=== PATIENT | male | born 1985 | race African-American/Black ===

== ENCOUNTER 2017-10-14 13:35 | Emergency (ER) | payer MEDICAID ==
[~2017-10-14] VITALS: Ht 185.4 cm; Wt 70.0 kg
[2017-10-14] MEDS ORDERED: ONDANSETRON HCL 4MG/2ML VIAL IV STA ×2 (15:29→21:09)
[2017-10-14] MEDS ORDERED: SODIUM CHLORIDE 0.9% 1,000 ML IV ONE (15:29)
[2017-10-14] MEDS ORDERED: MORPHINE SULFATE 4 MG/ML CPJ (NOT FOR IM USE) IV STA ×2 (15:29→21:09)
[2017-10-14 15:53] LABS: CLARITY URINE CLEAR (CLEAR); COLOR URINE DARK YELLOW (YELLOW); KETONES URINE 1+ (NEGATIVE); LEUKOCYTE ESTERASE URINE NEGATIVE (NEGATIVE); NITRITE URINE NEGATIVE (NEGATIVE); OCCULT BLOOD URINE NEGATIVE (NEGATIVE); PROTEIN URINE 2+ (NEGATIVE); SPECIFIC GRAVITY URINE 1.036 (1.005-1.030)
[2017-10-14 16:00] LABS: INR 1.1; PROTHROMBIN TIME 11.1 sec (9.4-11.6)
[2017-10-14 16:01] LABS: BASOPHILS % 0.7 % (0.0-2.0); EOSINOPHILS % 2.3 % (0.0-5.0); HEMATOCRIT. 48.8 % (42.0-52.0); LYMPHOCYTES % 20.3 % (20.0-50.0); MEAN CORPUSCULAR HEMOGLOBIN 29.8 pg (28.0-32.0); MEAN CORPUSCULAR VOLUME 90.9 fL (80.0-94.0); MEAN PLATELET VOLUME 9.1 fl (7.4-10.4); MONOCYTES % 4.8 % (2.0-8.0); NEUTROPHILS % 71.9 % (40.0-76.0); PLATELET 262 x1000/uL (130-400); RED BLOOD CELL COUNT 5.37 mill/uL (4.7-6.1); RED CELL DISTRIBUTION WIDTH 13.4 % (11.6-14.6)
[2017-10-14 16:29] LABS: CARBON DIOXIDE 28 mEq/L (21-32); TROPONIN I < 0.02 ng/mL (0.00-0.04)
[2017-10-14 17:33] LABS: CHLORIDE 103 mEq/L (98-107)
[2017-10-14] MEDS ORDERED: IOHEXOL-300 100 ML BOTTLE ONE (22:49)
[2017-10-15] MEDS ORDERED: ONDANSETRON HCL 4MG/2ML VIAL IV SCH (00:50)
[2017-10-15] MEDS ORDERED: KETOROLAC 30MG/ML VIAL IV SCH (01:00)
[2017-10-15] MEDS ORDERED: AZITHROMYCIN 500 MG TABLET PO SCH (01:00)
[2017-10-15] MEDS ORDERED: CEFTRIAXONE SODIUM 250 MG/VIAL IM SCH (01:00)
[2017-10-15 01:10] VITALS: BP 107/52
[2017-10-15] MEDS ORDERED: CEFTRIAXONE SODIUM 250 MG/VIAL IV SCH (01:15)
[2017-10-15] MEDS ORDERED: MIDAZOLAM HCL 2 MG/2 ML VIAL ONE ×2 (07:35→07:36)
[2017-10-15] MEDS ORDERED: FENTANYL CITRATE/PF 50MCG/ML 5ML VIAL ONE (07:36)
[2017-10-15] MEDS ORDERED: ROCURONIUM BROMIDE 10MG/ML VIAL 5ML IV ONE (07:38)
[2017-10-15] MEDS ORDERED: METOCLOPRAMIDE HCL 10MG/2ML VIAL ONE (07:38)
[2017-10-15] MEDS ORDERED: GLYCOPYRROLATE 0.2 MG/ML 2ML VIAL ONE (07:38)
[2017-10-15] MEDS ORDERED: CEFAZOLIN SODIUM 1000MG/VIAL ONE (07:38)
[2017-10-15] MEDS ORDERED: LIDOCAINE HCL/PF 1% 10 MG/ML 5ML VIAL ONE (07:38)
[2017-10-15] MEDS ORDERED: NEOSTIGMINE METHYLSULFATE 1MG/ML 10 ML VIAL ONE (07:38)
[2017-10-15] MEDS ORDERED: PROPOFOL 200MG/20ML VIAL IV ONE (07:38)
[2017-10-15] MEDS ORDERED: ONDANSETRON HCL 4MG/2ML VIAL ONE (07:38)
[2017-10-15] MEDS ORDERED: PHENYLEPHRINE HCL 10 MG/ML 1ML (IV VIAL) IV ONE (07:38)
[2017-10-15] MEDS ORDERED: EPHEDRINE SULFATE 50MG/ML VIAL ONE (07:38)
[2017-10-15] MEDS ORDERED: HYDRALAZINE 20MG/ML VIAL ONE (08:32)
[2017-10-15] MEDS ORDERED: MEPERIDINE HCL/PF 100MG/ML CPJ ONE (09:16)
[2017-10-15] MEDS ORDERED: BUPIVACAINE HCL/PF 0.25% (2.5MG/ML) 10ML ONE (09:21)
== END 2017-10-15 01:46 | disposition home or self-care (01) ==
LOC: ER 15:55
DX: N39.0 Urinary tract infection, site not specified (principal); B02.9 Zoster without complications; M79.652 Pain in left thigh
CPT/HCPCS: 36415; 74177; 80053; 81001; 83690; 84484; 84550; 85025; 85610; 87086; 96361; 96374; 96375; 99285; J0696; J1885; J2270; J2405; J7030; Q9967; J0171; J0360; J0690; J2175; J2250; J2370; J2704; J2710; J2765; J3010; J3490

== ENCOUNTER 2018-02-09 10:37 | Emergency (ER) | payer MEDICAID ==
[~2018-02-09] VITALS: Ht 185.4 cm; Wt 78.5 kg
[2018-02-09 11:53] LABS: CLARITY URINE CLEAR (CLEAR); COLOR URINE YELLOW (YELLOW); KETONES URINE NEGATIVE (NEGATIVE); LEUKOCYTE ESTERASE URINE NEGATIVE (NEGATIVE); NITRITE URINE NEGATIVE (NEGATIVE); OCCULT BLOOD URINE NEGATIVE (NEGATIVE); PROTEIN URINE NEGATIVE (NEGATIVE); SPECIFIC GRAVITY URINE 1.021 (1.005-1.030); UROBILINOGEN URINE 0.2 E.U./dL (0.2-1.0)
[2018-02-09 13:14] LABS: BASOPHILS % 0.8 % (0.0-2.0); EOSINOPHILS % 4.1 % (0.0-5.0); HEMATOCRIT. 49.4 % (42.0-52.0); HEMOGLOBIN. 16.5 g/dL (14.0-18.0); MEAN CORPUSCULAR HEMOGLOBIN 30.2 pg (28.0-32.0); MEAN CORPUSCULAR VOLUME 90.6 fL (80.0-94.0); MEAN PLATELET VOLUME 8.9 fl (7.4-10.4); MONOCYTES % 5.6 % (2.0-8.0); NEUTROPHILS % 64.5 % (40.0-76.0); PLATELET 221 x1000/uL (130-400); RED BLOOD CELL COUNT 5.45 mill/uL (4.7-6.1); RED CELL DISTRIBUTION WIDTH 13.1 % (11.6-14.6)
[2018-02-09 13:19] LABS: CHLORIDE 104 mEq/L (98-107)
[2018-02-09 13:22] LABS: INR 1.1; PROTHROMBIN TIME 11.3 sec (9.4-11.6)
[2018-02-09] MEDS ORDERED: KETOROLAC 15MG/ML VIAL IM ONE (14:15)
[2018-02-09 14:56] VITALS: BP 128/71
== END 2018-02-09 14:58 | disposition home or self-care (01) ==
LOC: EDBD 11:42 → ER 11:42
DX: R10.32 Left lower quadrant pain (principal); F12.10 Cannabis abuse, uncomplicated; Z87.440 Personal history of urinary (tract) infections; Z98.890 Other specified postprocedural states; Z87.891 Personal history of nicotine dependence
CPT/HCPCS: 36415; 80053; 81003; 83690; 85025; 85610; 99284; J1885

== ENCOUNTER 2019-10-20 15:05 | Emergency (ER) | payer MEDICAID ==
[~2019-10-20] VITALS: Ht 185.4 cm; Wt 78.0 kg
[2019-10-20 20:11] VITALS: BP 127/59
== END 2019-10-20 20:17 | disposition home or self-care (01) ==
LOC: ER 15:05
DX: M94.0 Chondrocostal junction syndrome [Tietze] (principal); I25.10 Atherosclerotic heart disease of native coronary artery without angina pectoris
CPT/HCPCS: 71045; 93005; 99283

== ENCOUNTER 2025-03-23 14:35 | Emergency (ER) | payer MEDICAID ==
[~2025-03-23] VITALS: Ht 185.4 cm; Wt 84.0 kg
[2025-03-23 15:09] VITALS: O2SAT 100
[2025-03-23 16:11] LABS: CLARITY URINE CLEAR (CLEAR); COLOR URINE YELLOW (YELLOW); GLUCOSE URINE NEGATIVE (NEGATIVE); KETONES URINE NEGATIVE (NEGATIVE); LEUKOCYTE ESTERASE URINE NEGATIVE (NEGATIVE); NITRITE URINE NEGATIVE (NEGATIVE); OCCULT BLOOD URINE NEGATIVE (NEGATIVE); PH URINE 7.0 (4.5-8.0); PROTEIN URINE NEGATIVE (NEGATIVE); SPECIFIC GRAVITY URINE 1.012 (1.005-1.030); UROBILINOGEN URINE 0.2 E.U./dL (0.2-1.0)
[2025-03-23 16:39] LABS: BASOPHILS % 0.5 % (0.0-2.0); EOSINOPHILS % 4.2 % (0.0-5.0); HEMATOCRIT. 48.0 % (42.0-52.0); HEMOGLOBIN. 15.7 g/dL (14.0-18.0); LYMPHOCYTES % 16.7 % (20.0-50.0); MEAN PLATELET VOLUME 8.8 fl (7.4-10.4); MONOCYTES % 5.5 % (2.0-8.0); NEUTROPHILS % 73.1 % (40.0-76.0); PLATELET 258 x1000/uL (130-400); RED BLOOD CELL COUNT 5.36 mill/uL (4.7-6.1); RED CELL DISTRIBUTION WIDTH 13.7 % (11.6-14.6)
[2025-03-23 16:55] LABS: CREATININE 1.3 mg/dL (0.6-1.3); UREA NITROGEN BLOOD 13 mg/dL (9-23)
[2025-03-23 17:41] LABS: ASPARTATE AMINOTRANSFERASE 26 IU/L (<34)
[2025-03-23 17:42] LABS: BILIRUBIN DIRECT 0.3 mg/dL (<=3.0); BILIRUBIN TOTAL 1.0 mg/dL (0.1-1.0); PROTEIN TOTAL 7.6 g/dL (6.0-8.3)
[2025-03-23] MEDS ORDERED: METH4TAB95 MT (18:58)
[2025-03-23 19:14] VITALS: BP 124/78; PULSE 78; RESP 14; TEMP 36.6; O2SAT 100
== END 2025-03-23 19:18 | disposition home or self-care (01) ==
LOC: ER 14:35
DX: R10.9 Unspecified abdominal pain (principal); Z87.440 Personal history of urinary (tract) infections; Z98.890 Other specified postprocedural states
CPT/HCPCS: 36415; 74176; 80048; 80076; 81003; 85025; 99284

== ENCOUNTER 2025-03-30 07:45 | Emergency (ER) | payer MEDICAID ==
[~2025-03-30] VITALS: Ht 185.4 cm; Wt 85.0 kg
[~2025-03-30 07:45] MED LIST: METH4TAB95 MT
[2025-03-30 07:51] VITALS: O2SAT 99
[2025-03-30] MEDS: DICYCLOMINE 10 MG/5 ML ORAL SYR PO STA (08:28)
[2025-03-30] MEDS: MAGNESIUM/ALUMINUM HYDROXIDE/SIMETHICONE 30ML UDC PO STA (08:34)
[2025-03-30] MEDS: DICYCLOMINE HCL 10MG CAPSULE PO SCH (08:34)
[2025-03-30] MEDS: KETOROLAC 30MG/ML VIAL IM STA (08:34)
[2025-03-30 08:39] LABS: BASOPHILS % 0.5 % (0.0-2.0); EOSINOPHILS % 1.6 % (0.0-5.0); HEMATOCRIT. 57.1 % (42.0-52.0); HEMOGLOBIN. 18.5 g/dL (14.0-18.0); LYMPHOCYTES % 17.0 % (20.0-50.0); MONOCYTES % 3.8 % (2.0-8.0); NEUTROPHILS % 77.1 % (40.0-76.0); RED BLOOD CELL COUNT 6.23 mill/uL (4.7-6.1); RED CELL DISTRIBUTION WIDTH 13.8 % (11.6-14.6)
[2025-03-30 09:07] LABS: CREATININE 1.4 mg/dL (0.6-1.3); ETHANOL BLOOD < 10 mg/dL (<10); UREA NITROGEN BLOOD 12 mg/dL (9-23)
[2025-03-30 09:09] LABS: ASPARTATE AMINOTRANSFERASE 23 IU/L (<34)
[2025-03-30 09:15] LABS: BILIRUBIN DIRECT 0.3 mg/dL (<=3.0); BILIRUBIN TOTAL 1.1 mg/dL (0.1-1.0); PROTEIN TOTAL 9.6 g/dL (6.0-8.3)
[2025-03-30 09:16] LABS: CLARITY URINE CLEAR (CLEAR); COLOR URINE DARK YELLOW (YELLOW); GLUCOSE URINE NEGATIVE (NEGATIVE); KETONES URINE 2+ (NEGATIVE); LEUKOCYTE ESTERASE URINE NEGATIVE (NEGATIVE); NITRITE URINE NEGATIVE (NEGATIVE); OCCULT BLOOD URINE NEGATIVE (NEGATIVE); PH URINE 5.5 (4.5-8.0); PROTEIN URINE NEGATIVE (NEGATIVE); SPECIFIC GRAVITY URINE 1.030 (1.005-1.030); UROBILINOGEN URINE 0.2 E.U./dL (0.2-1.0)
[2025-03-30 09:20] LABS: PLATELET 244 x1000/uL (130-400)
[2025-03-30] MEDS ORDERED: IBUP-2029 MT (09:57)
[2025-03-30] MEDS ORDERED: FAMO-135 MT (09:57)
[2025-03-30 10:39] VITALS: BP 134/80; PULSE 89; RESP 16; TEMP 36.8; O2SAT 99
== END 2025-03-30 10:42 | disposition home or self-care (01) ==
LOC: ER 07:45
DX: K80.20 Calculus of gallbladder without cholecystitis without obstruction (principal); F12.90 Cannabis use, unspecified, uncomplicated; Z98.890 Other specified postprocedural states
CPT/HCPCS: 36415; 76700; 80048; 80076; 80320; 81003; 85025; 99284; J1885; G0480

== ENCOUNTER 2025-04-04 09:33 | Emergency (ER) | payer MEDICAID ==
[~2025-04-04] VITALS: Ht 185.4 cm; Wt 80.0 kg
[~2025-04-04 09:33] MED LIST changes: +FAMO-135 MT; +IBUP-2029 MT
[2025-04-04 09:40] VITALS: O2SAT 99
[2025-04-04 10:06] LABS: BASOPHILS % 0.5 % (0.0-2.0); EOSINOPHILS % 3.9 % (0.0-5.0); HEMATOCRIT. 46.8 % (42.0-52.0); HEMOGLOBIN. 15.7 g/dL (14.0-18.0); LYMPHOCYTES % 15.0 % (20.0-50.0); MEAN PLATELET VOLUME 8.4 fl (7.4-10.4); MONOCYTES % 6.0 % (2.0-8.0); NEUTROPHILS % 74.6 % (40.0-76.0); PLATELET 259 x1000/uL (130-400); RED BLOOD CELL COUNT 5.15 mill/uL (4.7-6.1); RED CELL DISTRIBUTION WIDTH 13.8 % (11.6-14.6)
[2025-04-04 10:27] LABS: CREATININE 1.4 mg/dL (0.6-1.3)
[2025-04-04 10:28] LABS: UREA NITROGEN BLOOD 14 mg/dL (9-23)
[2025-04-04 10:29] LABS: ASPARTATE AMINOTRANSFERASE 20 IU/L (<34)
[2025-04-04 10:30] LABS: BILIRUBIN DIRECT 0.2 mg/dL (<=3.0); BILIRUBIN TOTAL 0.7 mg/dL (0.1-1.0); PROTEIN TOTAL 7.4 g/dL (6.0-8.3)
[2025-04-04] MEDS: KETOROLAC 30MG/ML VIAL IM ONE (10:45)
[2025-04-04 11:42] LABS: CLARITY URINE CLEAR (CLEAR); COLOR URINE YELLOW (YELLOW); GLUCOSE URINE NEGATIVE (NEGATIVE); KETONES URINE TRACE (NEGATIVE); LEUKOCYTE ESTERASE URINE NEGATIVE (NEGATIVE); NITRITE URINE NEGATIVE (NEGATIVE); OCCULT BLOOD URINE NEGATIVE (NEGATIVE); PH URINE 6.5 (4.5-8.0); PROTEIN URINE NEGATIVE (NEGATIVE); SPECIFIC GRAVITY URINE 1.012 (1.005-1.030); UROBILINOGEN URINE 0.2 E.U./dL (0.2-1.0)
[2025-04-04 11:49] VITALS: BP 118/81; PULSE 79; RESP 17; TEMP 36.8; O2SAT 98
== END 2025-04-04 12:07 | disposition home or self-care (01) ==
LOC: ER 09:33
DX: G89.29 Other chronic pain (principal); R10.32 Left lower quadrant pain; F12.90 Cannabis use, unspecified, uncomplicated; Z79.899 Other long term (current) drug therapy
CPT/HCPCS: 36415; 80048; 80076; 81003; 85025; 99283

== ENCOUNTER 2025-05-31 11:12 | Emergency (ER) | payer MEDICAID ==
[~2025-05-31 11:12] MED LIST changes: +IBUP-1455 MT; -IBUP-2029 MT
[2025-05-31 11:28] VITALS: PULSE 90; RESP 20; O2SAT 100
== END 2025-05-31 12:31 | disposition left against medical advice (07) ==
LOC: ER 11:12
DX: K62.89 Other specified diseases of anus and rectum (principal); Z53.21 Procedure and treatment not carried out due to patient leaving prior to being seen by health care provider